=== PATIENT | female | born 1980 | race Hispanic/Latino ===

== ENCOUNTER 2018-09-18 12:23 | Emergency (ER) | payer OTHER, SELFPAY ==
[2018-09-18] MEDS ORDERED: ONDANSETRON ODT 4 MG TAB ONE (12:59)
[2018-09-18] MEDS ORDERED: DiphenhydrAMINE HCL 50 MG/ML VIAL ONE (12:59)
[2018-09-18] MEDS ORDERED: KETOROLAC TROMETHAMINE 60 MG/2 ML VIAL ONE (14:03)
== END 2018-09-18 14:24 | disposition home or self-care (01) ==
LOC: EDH 12:23
DX: R51 Headache (principal)
CPT/HCPCS: 70450; 96372 ×2; 99284; J1200; J1885